=== PATIENT | male | born 1950 | race Caucasian/White ===

== ENCOUNTER 2023-08-19 14:42 | Outpatient (RCR) | payer MEDICARE, SELFPAY ==
[2023-08-19 12:10] LABS: Glucose - Point of Care 107 mg/dl (70-99)
[2023-08-19 12:58] LABS: Glucose - Point of Care 74 mg/dl (70-99)
[2023-08-19 13:15] LABS: Glucose - Point of Care 120 mg/dl (70-99)
== END 2023-08-19 23:59 | disposition home or self-care (01) ==
LOC: CRHB 14:42
PROVIDERS: ATTENDING PHYSICIAN Thoracic Surgery (Cardiothoracic Vascular Surgery)
DX: Z95.4 Presence of other heart-valve replacement (principal)
CPT/HCPCS: 82962; G0422; G0423

== ENCOUNTER 2023-09-18 10:52 | Outpatient (RCR) | payer MEDICARE, SELFPAY ==
[2023-08-28 10:15] LABS: Glucose - Point of Care 114 mg/dl (70-99)
[2023-08-28 11:24] LABS: Glucose - Point of Care 82 mg/dl (70-99)
[2023-09-02 10:21] LABS: Glucose - Point of Care 111 mg/dl (70-99)
[2023-09-02 11:34] LABS: Glucose - Point of Care 85 mg/dl (70-99)
[2023-09-04 10:18] LABS: Glucose - Point of Care 94 mg/dl (70-99)
[2023-09-04 11:21] LABS: Glucose - Point of Care 96 mg/dl (70-99)
[2023-09-16 09:58] LABS: Glucose - Point of Care 111 mg/dl (70-99)
[2023-09-16 11:03] LABS: Glucose - Point of Care 96 mg/dl (70-99)
[2023-09-18 10:27] LABS: Glucose - Point of Care 101 mg/dl (70-99)
[2023-09-18 11:34] LABS: Glucose - Point of Care 101 mg/dl (70-99)
== END 2023-09-18 23:59 | disposition home or self-care (01) ==
LOC: CRHB 10:52
PROVIDERS: ATTENDING PHYSICIAN Internal Medicine Interventional Cardiology
DX: Z95.4 Presence of other heart-valve replacement (principal)
CPT/HCPCS: 82962; G0422; G0423

== ENCOUNTER → 2024-01-29 08:32 | Outpatient (REF) | payer MEDICARE, SELFPAY | LOC: RCS 08:32 | PROVIDERS: ATTENDING PHYSICIAN Internal Medicine Interventional Cardiology; FAMILY PHYSICIAN Family Medicine | DX: Z95.3 Presence of xenogenic heart valve (principal); I35.0 Nonrheumatic aortic (valve) stenosis | CPT/HCPCS: 93306 ==

== ENCOUNTER → 2025-03-15 08:39 | Outpatient (REF) | payer OTHER, SELFPAY | LOC: RAD 08:39 | PROVIDERS: ATTENDING PHYSICIAN Internal Medicine Interventional Cardiology; FAMILY PHYSICIAN Family Medicine | DX: Z95.3 Presence of xenogenic heart valve (principal); I77.0 Arteriovenous fistula, acquired | CPT/HCPCS: 93306; 93931 ==